=== PATIENT | male | born 1975 | race Caucasian/White ===

== ENCOUNTER → 2017-01-15 15:09 | Outpatient (CLI) | payer OTHER ==
[2017-01-15 15:18] LABS: BASOPHILS 0.2 % (0-2); EOSINOPHILS 5.7 % (0-7); HEMATOCRIT 42.9 % (42.0-54.0); HEMOGLOBIN 14.4 g/dL (13.5-17.5); IMMATURE GRANULOCYTES 0.3 % (0-5); LYMPHOCYTES 38.6 % (15-50); MCH 30.7 pg (26.0-34.0); MCHC 33.6 g/dL (31.0-37.0); MCV 91.5 fL (80.0-100.0); MEAN PLATELET VOLUME 9.6 fL (7.4-10.4); MONOCYTES 7.2 % (2-11); PLATELET COUNT 224 10x3/uL (130-400); RBC 4.69 10x6/uL (4.20-6.10); WBC 6.5 10x3/uL (4.8-10.8)
[2017-01-15 15:40] LABS: ANION GAP 10.2 mmol/L (8-16); CALCIUM 9.3 mg/dL (8.5-10.1); CARBON DIOXIDE 31.8 mmol/L (21.0-32.0); CREATININE - SERUM 1.5 mg/dL (0.6-1.3)
== END | disposition home or self-care (01) ==
LOC: D.LAB 14:53
PROVIDERS: Urology
DX: N46.9 Male infertility, unspecified (principal)

== ENCOUNTER 2017-01-23 08:28 | Day surgery (SDC) | payer OTHER ==
[~2017-01-23] VITALS: Ht 182.9 cm; Wt 95.3 kg
[~2017-01-23 08:28] MED LIST: ADDERALL 30 MG30 MG PO
[2017-01-23 09:22] VITALS: BP 120/76; Ht 182.9 cm; Wt 95.3 kg
--- NOTE | 2017-01-23 14:37 | OP ---
PATIENT NAME: BRADLY GORDON MEDICAL RECORD: [id number] [facility] ADMISSION DATE: SURGEON: FRANCO VILLA MD DATE OF OPERATION: 01/23/2017 SURGEON: Franco Villa MD. ANESTHESIA: MAC by Dr. Ferguson. PREOPERATIVE DIAGNOSIS: Elective male sterilization. PROCEDURE: Vasectomy. FINDINGS: Bilateral vasa deferentia. SPECIMENS: Bilateral vas segments. ESTIMATED BLOOD LOSS: None. CLINICAL HISTORY: The patient is a 41-year-old male, who requests elective male sterilization. His is in agreement with this plan. They have several children. He is otherwise in good health. 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 DESCRIPTION OF PROCEDURE: The patient was given IV sedation. He was placed in supine position. The vas deferens was identified on the right side. Towel clips were placed to isolate the vas segments. This was placed cranially and inferiorly. The skin between the 2 segments overlying the vas was infiltrated with 1% lidocaine without epinephrine. The skin incision was then made with #15 blade. We went down to the dartos fascia with #15 blade. A J clamp was used to go around the vas deferens and lifted up. The tunics were then incised using the needle-tip Bovie. Once we fully uncovered the vas deferens, the vas deferens was clamped with hemostats at its proximal and its distal locations. A distance of at least 1 cm was placed in between the vas deferens segments. The #15 scalpel was then used to cut the intervening segment out and this was sent to pathology in formalin. The cut ends of the vas were cauterized using the needle tip Bovie to seal off the lumen. A 4-0 Prolene was used to tie off the vas deferens. We made sure that there was no bleeding from the tunics and the dartos fascia. The vasal segments were then placed back into the hemiscrotum and the scrotal skin was closed using simple interrupted 4-0 Vicryl. The same procedure was repeated on the opposite side. At the end of the procedure, fluffs were placed and mesh panties were given to the patient. I will see the patient next week in followup to check on the incisional healing. TRANSINT:[id number] Voice Confirmation ID: [id number] DOCUMENT ID: [id number] FRANCO VILLA MD at 1437 CC: [id number] DICTATION DATE: 01/23/17 1232 DUCK BILL OPERATOR: 01/23/17 1327 REG [place] [id number] [place] [id number]
--- NOTE | 2017-01-23 14:44 | NUR ---
VOIDED, IV REMOVED INTACT.
== END 2017-01-23 15:00 | disposition home or self-care (01) ==
LOC: D.OPS 08:28 → D.PAN 12:15 → D.OPS 15:00
DX: Z30.2 Encounter for sterilization (principal); Z01.812 Encounter for preprocedural laboratory examination